=== PATIENT | female | born 2000 | race Caucasian/White ===

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

== ENCOUNTER 2023-12-06 18:47 | Emergency (ER) | payer OTHER ==
--- NOTE | 2023-12-06 19:52 | ED ---
Abdominal Pain HPI - General Chief Complaint: Abdominal Pain Stated Complaint: 6 weeks cramping Time Seen by Provider: 12/06/23 19:51 Source: patient Mode of arrival: ambulatory Limitations: no limitations - History of Present Illness Initial Comments: 23-year-old female presenting with chief complaint of pelvic cramping. States this has been ongoing for the last week or 2, located centrally in the pelvis. She currently estimates herself to be about 6 weeks , states that her LMP was at the beginning of October. G1, P0. Denies any vaginal bleeding. No nausea, vomiting, diarrhea, dysuria, hematuria, fever, chills, abnormal vaginal discharge. - Related Data Allergies Allergy/AdvReac Type Severity Reaction Status Date / Time No Known Allergies Allergy Verified 12/06/23 19:12 Review of Systems ROS Statement: Those systems with pertinent positive or pertinent negative responses have been documented in the HPI. ROS Other: All systems not noted in ROS Statement are negative. Past Medical History Past Medical History: No Reported History History of Any Multi-Drug Resistant Organisms: None Reported Past Surgical History: No Surgical Hx Reported Past Psychological History: No Psychological Hx Reported Past Alcohol Use History: None Reported Past Drug Use History: None Reported, Marijuana General Exam - General Exam Comments Initial Comments: Visual Physical Exam Vital signs reviewed General: Well-appearing, nontoxic, no acute distress. Head: Normocephalic, atraumatic Eyes: PERRLA, EOMI ENT: Airway patent Chest: Nonlabored breathing Skin: No visual rash, normal skin tone Neuro: Alert and oriented 3 Musculoskeletal: No gross abnormalities Limitations: no limitations General appearance: alert, in no apparent distress Head exam: Present: atraumatic, normocephalic Eye exam: Present: normal appearance Neck exam: Present: normal inspection Respiratory exam: Absent: respiratory distress Cardiovascular Exam: Present: regular rate GI/Abdominal exam: Absent: distended Neurological exam: Present: alert, oriented X3 Psychiatric exam: Present: normal affect, normal mood Skin exam: Present: warm, dry Course Vital Signs 12/06/23 12/06/23 19:10 23:49 Temperature 98.4 F 98.1 F Pulse Rate 75 83 Respiratory 18 16 Rate Blood Pressure 159/97 144/91 O2 Sat by Pulse 99 99 Oximetry Medical Decision Making - Medical Decision Making Was pt. sent in by a medical professional or institution (, PA, ELECTRIC SEALING MACHINE OPERATOR, urgent care, hospital, or [place] health care facility...) When possible be specific @ -No Did you speak to anyone other than the patient for history (EMS, parent, family, police, friend...)? What history was obtained from this source @ -No Did you review nursing and triage notes (agree or disagree)? Why? @ -I reviewed and agree with nursing and triage notes Were old charts reviewed (outside hosp., previous admission, EMS record, old EKG, old radiological studies, urgent care reports/EKG's, [place] health care facility records)? Report findings @ -No old charts were reviewed Differential Diagnosis (chest pain, altered mental status, abdominal pain women, abdominal pain men, vaginal bleeding, weakness, fever, dyspnea, syncope, headache, dizziness, GI bleed, back pain, seizure, CVA, palpatations, mental health, musculoskeletal)? @ -Differential includes uncomplicated , threatened miscarriage, missed miscarriage, ectopic , molar , UTI, kidney stone, colitis, this is not an all-inclusive list EKG interpreted by me (3pts min.). @ -As above X-rays interpreted by me (1pt min.). @ -None done CT interpreted by me (1pt min.). @ -None done U/S interpreted by me (1pt. min.). @ -Ultrasound shows small anechoic intrauterine cystic structure without evidence for yolk sac or pole at this time. This is thought to represent an early gestational sac with a positive beta hCG, however ectopic and abnormal intrauterine cannot be ruled out based on this exam alone. Follow-up with pelvic ultrasound in 7 to 10 days and serial beta hCG studies are recommended to ensure further development of the fetus What testing was considered but not performed or refused? (CT, X-rays, U/S, labs)? Why? @ -None What meds were considered but not given or refused? Why? @ -None Did you discuss the management of the patient with other professionals ( professionals i.e. NÉSTOR Jama, ELECTRIC SEALING MACHINE OPERATOR, lab, RT, psych nurse, social welfare clerk, aircraft servicer, teacher, workplace rehabilitation officer, showcase trimmer)? Give summary @ -No Was smoking cessation discussed for >3mins.? @ -No Was critical care preformed (if so, how long)? @ -No Were there social determinants of health that impacted care today? How? (Homelessness, low income, unemployed, alcoholism, drug addiction, transportation, low edu. Level, literacy, decrease access to med. care, senior living, rehab)? @ -No Was there de-escalation of care discussed even if they declined (Discuss DNR or withdrawal of care, Hospice)? DNR status @ -No What co-morbidities impacted this encounter? (DM, HTN, Smoking, COPD, CAD, Cancer, CVA, ARF, Chemo, Hep., AIDS, mental health diagnosis, sleep apnea, morbid obesity)? @ -None Was patient admitted / discharged? Hospital course, mention meds given and route, prescriptions, significant lab abnormalities, going to OR and other pertinent info. @ -23-year-old female presenting with chief complaint of pelvic cramping. Her LMP was at the beginning of October and she estimates herself to be about 6 weeks . No vaginal bleeding. Workup was initiated by triage. WBC 12 hemoglobin 14.1. hCG 2354.8. Urine shows no infectious process or bleeding. Ultrasound shows a small anechoic intrauterine cystic structure that is thought to represent an early gestational sac, no evidence for yolk sac or pole at this time. Patient is educated on today's findings. She is instructed to follo w-up with [facility], she is provided with an order for repeat beta hCG in 48 hours. Instructed to take Tylenol at home for pain, no NSAIDs. She is currently taking a vitamin. Discharged home. Follow-up with PCP. Report back to ER with any new or worsening symptoms. Discussed return parameters and answered all questions. Patient conveyed verbal understanding and agreed to the plan. I discussed this case in detail with my attending Dr. Camara Undiagnosed new problem with uncertain prognosis? @ -No Drug Therapy requiring intensive monitoring for toxicity (Heparin, Nitro, Insulin, Cardizem)? @ -No Were any procedures done? @ -No Diagnosis/symptom? @ -Threatened miscarriage Acute, or Chronic, or Acute on Chronic? @ -Acute Uncomplicated (without systemic symptoms) or Complicated (systemic symptoms)? @ -Uncomplicated Side effects of treatment? @ -No Exacerbation, Progression, or Severe Exacerbation? @ -No Poses a threat to life or bodily function? How? (Chest pain, USA, MD, pneumonia, PE, COPD, DKA, ARF, appy, cholecystitis, CVA, Diverticulitis, Homicidal, Suicidal, threat to staff... and all critical care pts) @ -No - Lab Data Result diagrams: 12/06/23 21:30 12/06/23 21:30 Lab Results 12/06/23 12/06/23 12/06/23 Range/Units 19:15 19:15 21:30 WBC 12.0 H (3.8-10.6) k/uL RBC 5.09 (3.80-5.40) m/uL Hgb 14.1 (11.4-16.0) gm/dL Hct 42.9 (34.0-46.0) % MCV 84.2 (80.0-100.0) fL MCH 27.7 (25.0-35.0) pg MCHC 32.9 (31.0-37.0) g/dL RDW 13.8 (11.5-15.5) % Plt Count 276 (150-450) k/uL MPV 8.6 Neutrophils % 63 % Lymphocytes % 28 % Monocytes % 7 % Eosinophils % 1 % Basophils % 1 % Neutrophils # 7.5 (1.3-7.7) k/uL Lymphocytes # 3.3 (1.0-4.8) k/uL Monocytes # 0.8 (0-1.0) k/uL Eosinophils # 0.1 (0-0.7) k/uL Basophils # 0.1 (0-0.2) k/uL Sodium (137-145) mmol/L Potassium (3.5-5.1) mmol/L Chloride (98-107) mmol/L Carbon Dioxide (22-30) mmol/L Anion Gap mmol/L BUN (7-17) mg/dL Creatinine (0.52-1.04) mg/dL Est GFR (CKD-EPI)AfAm (>60 ml/min/1.73 sqM) Est GFR (CKD-EPI)NonAf (>60 ml/min/1.73 sqM) Glucose (74-99) mg/dL Calcium (8.4-10.2) mg/dL Total Bilirubin (0.2-1.3) mg/dL AST (14-36) U/L ALT (4-34) U/L Alkaline Phosphatase (38-126) U/L Total Protein (6.3-8.2) g/dL Albumin (3.5-5.0) g/dL HCG, Quant mIU/mL Urine Color Yellow Urine Appearance Clear (Clear) Urine pH 5.5 (5.0-8.0) Ur Specific [place] 1.029 (1.001-1.035) Urine Protein Trace H (Negative) Urine Glucose (UA) Negative (Negative) Urine Ketones Negative (Negative) Urine Blood Negative (Negative) Urine Nitrite Negative (Negative) Urine Bilirubin Negative (Negative) Urine Urobilinogen <2.0 (<2.0) mg/dL Ur Leukocyte Esterase Negative (Negative) Urine HCG, Qual Detected (Not Detectd) 12/06/23 Range/Units 21:30 WBC (3.8-10.6) k/uL RBC (3.80-5.40) m/uL Hgb (11.4-16.0) gm/dL Hct (34.0-46.0) % MCV (80.0-100.0) fL MCH (25.0-35.0) pg MCHC (31.0-37.0) g/dL RDW (11.5-15.5) % Plt Count (150-450) k/uL MPV Neutrophils % % Lymphocytes % % Monocytes % % Eosinophils % % Basophils % % Neutrophils # (1.3-7.7) k/uL Lymphocytes # (1.0-4.8) k/uL Monocytes # (0-1.0) k/uL Eosinophils # (0-0.7) k/uL Basophils # (0-0.2) k/uL Sodium 136 L (137-145) mmol/L Potassium 3.7 (3.5-5.1) mmol/L Chloride 105 (98-107) mmol/L Carbon Dioxide 19 L (22-30) mmol/L Anion Gap 12 mmol/L BUN 12 (7-17) mg/dL Creatinine 0.54 (0.52-1.04) mg/dL Est GFR (CKD-EPI)AfAm >90 (>60 ml/min/1.73 sqM) Est GFR (CKD-EPI)NonAf >90 (>60 ml/min/1.73 sqM) Glucose 82 (74-99) mg/dL Calcium 10.0 (8.4-10.2) mg/dL Total Bilirubin 0.5 (0.2-1.3) mg/dL AST 31 (14-36) U/L ALT 23 (4-34) U/L Alkaline Phosphatase 90 (38-126) U/L Total Protein 8.4 H (6.3-8.2) g/dL Albumin 4.9 (3.5-5.0) g/dL HCG, Quant 2354.8 mIU/mL Urine Color Urine Appearance (Clear) Urine pH (5.0-8.0) Ur Specific [place] (1.001-1.035) Urine Protein (Negative) Urine Glucose (UA) (Negative) Urine Ketones (Negative) Urine Blood (Negative) Urine Nitrite (Negative) Urine Bilirubin (Negative) Urine Urobilinogen (<2.0) mg/dL Ur Leukocyte Esterase (Negative) Urine HCG, Qual (Not Detectd) Disposition Clinical Impression: Threatened Disposition: HOME SELF-CARE Condition: Good Instructions (If sedation given, give patient instructions): Threatened [place] (ED) Additional Instructions: Follow-up with [facility]. Report back to ER with any new or worsening symptoms. Obtain repeat beta hCG in 48 hours, you are provided with an order for this lab Is patient prescribed a controlled substance at d/c from ED?: No Referrals: None,Stated [Primary Care Provider] - 1-2 days Sharita Matson DO [Doctor of Osteopathic Medicine] - 1-2 days Time of Disposition: 23:32
[2023-12-06 20:09] LABS: Appearance,Urine Clear (Clear); Bilirubin,Urine Negative (Negative); Blood,Urine Negative (Negative); Color,Urine Yellow; Glucose,Urine (UA) Negative (Negative); Ketones,Urine Negative (Negative); Leukocyte Esterase,Urine Negative (Negative); Nitrite,Urine Negative (Negative); PH, Urine 5.5 (5.0-8.0); Protein,Urine Trace (Negative); Specific Gravity,Urine 1.029 (1.001-1.035); Urobilinogen,Urine <2.0 mg/dL (<2.0)
--- NOTE | 2023-12-06 22:07 | US ---
EXAMINATION TYPE: Transabdominal DATE OF EXAM: 12/06/2023 9:56 PM COMPARISON: NONE CLINICAL INDICATION: Female, 23 years old with history of cramping; cramping x 2 weeks. Pt unsure how far along she is EXAM PERFORMED: Transabdominal (TA) EXAM MEASUREMENTS: GESTATIONAL AGE / DATING Physician Established: Not yet established Dates by LMP: 10/23/23 (6 weeks/2 days) EDC: 07/29/24 Dates by First Scan: No previous this is first scan Dates by Current Scan for: Unable to date by today's study MATERNAL ANATOMY Uterus: 6.6 x 5.4 x 4.5cm Right Ovary: 3.3 x 2.3 x 2.3cm Left Ovary: 3.8 x 2.1 x 1.7cm Post CDS / Adnexa: wnl Presence of free fluid: No Presence of corpus luteal cyst: Yes in rt ovary measuring 2.1 x 2.0 x 2.0cm Presence of subchorionic bleed: no GESTATION / SURVEY CRL: Not seen MSD: 0.46cm ( OOR) Yolk Sac (normal less than 6mm): Not seen Date of LMP: Pt thinks around 10/23/23 Beta HcG (if available): Pending Anechoic structure seen in endometrium that could represent the gestational sac is measuring out of r laura, possibly too early. IMPRESSION: Small anechoic intrauterine cystic structure without evidence for yolk sac or pole at this time . This is thought to represent an early gestational sac with a positive beta hCG, however ectopic pre gnancy and abnormal intrauterine cannot be ruled out based on this exam alone. [facility] in 7-10 days and serial beta-hCG studies are recommended to en sure further deve lopment of the fetus.
[2023-12-06 22:21] LABS: Basophils # (A) 0.1 k/uL (0-0.2); Basophils % (A) 1 %; Eosinophils # (A) 0.1 k/uL (0-0.7); Eosinophils % (A) 1 %; HCT 42.9 % (34.0-46.0); HGB 14.1 gm/dL (11.4-16.0); Lymphocytes # (A) 3.3 k/uL (1.0-4.8); Lymphocytes % (A) 28 %; MCH 27.7 pg (25.0-35.0); MCHC 32.9 g/dL (31.0-37.0); MCV 84.2 fL (80.0-100.0); Mean Platelet Volume 8.6; Monocytes # (A) 0.8 k/uL (0-1.0); Monocytes % (A) 7 %; Neutrophils # (A) 7.5 k/uL (1.3-7.7); Neutrophils % (A) 63 %; Platelet Count 276 k/uL (150-450); RBC 5.09 m/uL (3.80-5.40); RDW 13.8 % (11.5-15.5)
[2023-12-06 22:35] LABS: ALT 23 U/L (4-34); AST 31 U/L (14-36); African American GFR (CKD) >90 (>60 ml/min/1.73 sqM); Albumin 4.9 g/dL (3.5-5.0); Alkaline Phosphatase 90 U/L (38-126); Anion Gap 12 mmol/L; Blood Urea Nitrogen 12 mg/dL (7-17); Carbon Dioxide 19 mmol/L (22-30); Chloride 105 mmol/L (98-107); Glucose 82 mg/dL (74-99); Non-African American GFR(CKD) >90 (>60 ml/min/1.73 sqM); Potassium 3.7 mmol/L (3.5-5.1); Sodium 136 mmol/L (137-145); Total Bilirubin 0.5 mg/dL (0.2-1.3); Total Protein 8.4 g/dL (6.3-8.2)
[2023-12-06 22:50] LABS: HCG,Quantitative Serum 2354.8 mIU/mL
[2023-12-07 00:24] VITALS: BP 144/91; PULSE 83; RESP 16; TEMP 98.1
== END 2023-12-06 23:49 | disposition home or self-care (01) ==
LOC: EC 18:47
DX: O20.0 Threatened abortion (principal); O99.331 Smoking (tobacco) complicating pregnancy, first trimester; F12.90 Cannabis use, unspecified, uncomplicated; Z3A.01 Less than 8 weeks gestation of pregnancy
CPT/HCPCS: 36415; 76801; 80053; 81003; 81025; 84702; 85025; 99284

== ENCOUNTER → 2023-12-08 | Outpatient (CLI) | payer OTHER | END | disposition home or self-care (01) | LOC: LABWHC1 09:55 | PROVIDERS: ATTEND Physician Assistant | DX: O20.0 Threatened abortion (principal); Z3A.00 Weeks of gestation of pregnancy not specified | CPT/HCPCS: 36415; 84702 ==

== ENCOUNTER 2024-03-24 22:07 | Outpatient (CLI) | payer OTHER ==
[2024-03-24 22:54] LABS: Appearance,Urine Clear (Clear); Bilirubin,Urine Negative (Negative); Blood,Urine Negative (Negative); Color,Urine Colorless; Glucose,Urine (UA) Negative (Negative); Ketones,Urine Negative (Negative); Leukocyte Esterase,Urine Negative (Negative); Nitrite,Urine Negative (Negative); Protein,Urine Negative (Negative); Specific Gravity,Urine 1.007 (1.001-1.035); Urobilinogen,Urine <2.0 mg/dL (<2.0)
[2024-03-24] MEDS: ACETAMINOPHEN TAB 500 MG TAB PO STA (23:02)
[2024-03-24] MEDS ORDERED: FAMOTIDINE 20 MG/2 ML VIAL IV SCH (23:15)
[2024-03-24] MEDS: FAMOTIDINE 20 MG TAB PO STA (23:33)
[2024-03-24] MEDS: ONDANSETRON 4 MG/2 ML VIAL IVP STA (23:33)
[2024-03-24] MEDS: LACTATED RINGERS 1,000 ML IV ONE (23:33)
[2024-03-25] MEDS: CYCLOBENZAPRINE 5 MG TAB PO STA (00:30)
[2024-03-25 01:48] VITALS: BP 121/57; PULSE 76; RESP 18; TEMP 96
--- NOTE | 2024-04-14 15:46 | P.MSEPDOC ---
Presenting Problems - Arrival Data Date of Arrival on Unit: 03/25/24 Time of Arrival on Unit: 22:03 Mode of Transport: Wheelchair - Complaint OB-Reason for Admission/Chief Complaint: Acute Nausea/Vomiting, Other Comment: Right lower abd pain, back pain, nausea and vomiting Medical History - Information : 1 Para: 0 Term: 0 : 0 Abortions: Spontaneous or Elective: 0 Number of Living Children: 0 - Gestational Age Gestational Age by VARGHESE (wks/days): 20 Weeks and 1 Days Review of Systems - Review of Systems Constitutional: No problems Breast: No problems ENT: No problems Cardiovascular: No problems Respiratory: No problems Gastrointestinal: No problems Genitourinary: No problems Musculoskeletal: No problems Neurological: No problems Skin: No problems Vital Signs - Temperature Temperature: 96 F Temperature Source: Temporal Artery Scan - Pulse Right Pulse Rate: 76 Pulse Assessment Method: Pulse Oximetry - Respirations Respiratory Rate: 18 Oxygen Delivery Method: Room Air O2 Sat by Pulse Oximetry: 98 - Blood Pressure Right Arm Blood Pressure: 121/57 Blood Pressure Mean: 78 Blood Pressure Source: Automatic Cuff Medical Screen Scoring - Assessment - Baby A Baseline FHR: 150 Physician Notification - Physician Notified Physician Notified Date: 03/24/24 Physician Notified Time: 22:55 Physician: Audra Fontana Order Received: Yes (1L LR bolus, IV zofran 4mg, PO pepcid 20mg) - Notification Comment Comment: additional dose of Flexeril 5mg Maternal Triage Index - Maternal Triage Index Presenting for scheduled procedure w/no complaint: No - Stat/Priority 1 Stat Priority 1: No - Urgent/Priority 2 Urgent Priority 2: No - Prompt/Priority 3 Prompt Priority 3: No - Non-Urgent/Priority 4 Non-Urgent Priority 4: Yes Criteria Met for Priority 4: N/V, right lower abd pain and back pain Disposition - Disposition OB Disposition: Discharge to home Discharge Date: 03/25/24 Discharge Time: 01:29 I agree with the RN Medical Screening Exam: Yes Physician's MSE Comment: I have neither seen nor examined the patient Case reviewed; plan agreed upon as documented in EMR&OBIX.: Yes Diagnosis: MATERNAL CARE FOR PROBLEM, UNSP, SECOND * DO NOT USE *
== END 2024-03-25 01:36 | disposition home or self-care (01) ==
LOC: FBPOP 22:07
PROVIDERS: ATTEND Obstetrics & Gynecology
DX: O21.9 Vomiting of pregnancy, unspecified (principal); O26.892 Other specified pregnancy related conditions, second trimester; M54.9 Dorsalgia, unspecified; R10.31 Right lower quadrant pain; Z3A.20 20 weeks gestation of pregnancy
CPT/HCPCS: 59025; 96361; 96374; 96375; 81003; G0463; J2405; 36415; 96365; 99214

== ENCOUNTER → 2024-05-21 | Outpatient (CLI) | payer OTHER ==
[2024-05-21 15:57] LABS: HCT 33.7 % (37.2-46.3); HGB 10.6 g/dL (12.0-15.0); MCH 27.9 pg (27.0-32.0); MCHC 31.5 g/dL (32.0-37.0); MCV 88.7 FL (80.0-97.0); Mean Platelet Volume 11.5 FL (9.5-12.2); NRBC Per 100 WBC 0 X 10*3/uL (0.00-0.01); Platelet Count 290 X 10*3/uL (140-440); RDW 13.5 % (11.5-14.5); WBC 12.92 X 10*3/uL (4.50-10.00)
== END | disposition home or self-care (01) ==
LOC: LABWHC1 09:50
PROVIDERS: ATTEND Obstetrics & Gynecology
DX: Z36.9 Encounter for antenatal screening, unspecified (principal)
CPT/HCPCS: 36415; 82950; 85027; 86850

== ENCOUNTER 2024-06-19 18:04 | Outpatient (CLI) | payer OTHER ==
[2024-06-19 20:57] VITALS: BP 150/93; PULSE 66; RESP 16; TEMP 98.4
--- NOTE | 2024-07-05 09:17 | P.MSEPDOC ---
Presenting Problems - Arrival Data Date of Arrival on Unit: 06/19/24 Time of Arrival on Unit: 18:04 Mode of Transport: Ambulatory - Complaint OB-Reason for Admission/Chief Complaint: Decreased Movement Comment: pt to traige for decreased movement, states has felt some movment but not as much as normal, and movements have been milder Medical History - Information : 1 Para: 0 Term: 0 : 0 Abortions: Spontaneous or Elective: 0 Number of Living Children: 0 - Gestational Age Gestational Age by VARGHESE (wks/days): 32 Weeks and 3 Days - History Comment: IUGR Review of Systems - Review of Systems Constitutional: No problems Breast: No problems ENT: No problems Cardiovascular: No problems Respiratory: No problems Gastrointestinal: No problems Genitourinary: No problems Musculoskeletal: No problems Neurological: No problems Skin: No problems Vital Signs - Temperature Temperature: 98.4 F Temperature Source: Temporal Artery Scan - Pulse Pulse Oximetery Pulse Rate: 66 Pulse Assessment Method: Pulse Oximetry - Respirations Respiratory Rate: 16 Oxygen Delivery Method: Room Air - Blood Pressure Right Arm Blood Pressure: 150/93 Blood Pressure Mean: 112 Blood Pressure Source: Automatic Cuff Medical Screen Scoring - Uterine Contractions Intensity: Absent Resting: Soft to palpation - Assessment - Baby A Baseline FHR: 145 Heart Rate - NICHD Category: Category II (Indeterminate) NST: Reactive Physician Notification - Physician Notified Physician Notified Date: 06/19/24 Physician Notified Time: 19:19 Physician: Jimmy Bolton New Order Received: Yes - Notification Comment Comment: Called Dr. Bolton, reported pt to traige c/o decreased movement, has felt movement in triage, reactive nst, with 2 variables, bp 150/93, 137/91,and all others less. pt does not have any s/sx preeclampsia. Per Dr. Bolton keep on monitor until 1999 and if no more decels, discharge home Maternal Triage Index - Maternal Triage Index Presenting for scheduled procedure w/no complaint: No - Stat/Priority 1 Stat Priority 1: No - Urgent/Priority 2 Urgent Priority 2: Yes Provider Notified: Jimmy Bolton Provider Notified Time: 19:19 Criteria Met for Priority 2: pt to traige for decreased movement, states has felt some movment but not as much as normal, and movements have been milder Disposition - Disposition OB Disposition: Discharge to home Discharge Date: 06/19/24 Discharge Time: 20:05 I agree with the RN Medical Screening Exam: Yes Physician's MSE Comment: I have neither seen nor examined the patient. Case reviewed; plan agreed upon as documented in EMR&OBIX.: Yes Diagnosis: RELATED CONDITIONS, UNSPECIFIED, THIRD TRIMESTER
== END 2024-06-19 20:05 | disposition home or self-care (01) ==
LOC: FBPOP 18:04
PROVIDERS: ATTEND Obstetrics & Gynecology
CPT/HCPCS: 59025; 99213

== ENCOUNTER 2024-07-11 19:54 | Inpatient (IN) | payer OTHER ==
[2024-07-11 20:38] LABS: Basophils % (A) 0 %; Eosinophils # (A) 0.1 k/uL (0-0.7); Eosinophils % (A) 1 %; HCT 34.1 % (34.0-46.0); HGB 10.9 gm/dL (11.4-16.0); Hypochromasia Slight; Lymphocytes # (A) 3.4 k/uL (1.0-4.8); Lymphocytes % (A) 28 %; MCH 27.8 pg (25.0-35.0); MCV 87.1 fL (80.0-100.0); Mean Platelet Volume 9.7; Monocytes # (A) 0.5 k/uL (0-1.0); Monocytes % (A) 5 %; Neutrophils # (A) 7.7 k/uL (1.3-7.7); Neutrophils % (A) 64 %; Platelet Count 272 k/uL (150-450); RBC 3.91 m/uL (3.80-5.40); RDW 15.1 % (11.5-15.5)
[2024-07-11] MEDS: LABETALOL 5 MG/ML VIAL MDV IVP STA (20:40)
[2024-07-11 20:43] LABS: Appearance,Urine Clear (Clear); Bacteria,Urine Rare /hpf; Bilirubin,Urine Negative (Negative); Blood,Urine Negative (Negative); Color,Urine Colorless; Glucose,Urine (UA) Negative (Negative); Ketones,Urine Negative (Negative); Leukocyte Esterase,Urine Negative (Negative); Nitrite,Urine Negative (Negative); PH, Urine 6.5 (5.0-8.0); Protein,Urine 2+ (Negative); RBC,Urine <1 /hpf (0-5); Specific Gravity,Urine 1.008 (1.001-1.035); Squamous Epithelial Cell,Urine 1 /hpf (0-4); Urobilinogen,Urine <2.0 mg/dL (<2.0); WBC,Urine <1 /hpf (0-5)
[2024-07-11] MEDS: LACTATED RINGERS 1,000 ML IV SCH (20:43)
[2024-07-11 20:54] LABS: Creatinine,Urine Random 37.2 mg/dL
[2024-07-11 20:55] LABS: ALT 25 U/L (4-34); AST 47 U/L (14-36); African American GFR (CKD) >90 (>60 ml/min/1.73 sqM); Blood Urea Nitrogen 11 mg/dL (7-17); LDH 206 U/L (120-246); Non-African American GFR(CKD) >90 (>60 ml/min/1.73 sqM); Uric Acid 6.1 mg/dL (3.7-7.4)
[2024-07-11 20:56] LABS: INR 0.8 (<1.2); Partial Thromboplastin Time 22.3 sec (22.0-30.0); Prothrombin Time 9.4 sec (10.0-12.5)
[2024-07-11 21:03] LABS: Protein/Creatinine Ratio,Urine 9.435
--- NOTE | 2024-07-11 21:23 | P.HPOB ---
History of Present Illness H&P Date: 07/11/24 Chief Complaint: headache, elevated blood pressures Ms. Soto is a 24 year old at 35 weeks and 4 days by 6 week US who presents with headache and elevated blood pressures. Her has been complicated by IUGR in the 4%ile. The fetus has been undergoing s urveillance that has been reassuring. On presentation to triage, the patient is noted to have persistently severe-range blood pressures 170s/100s. IV Labetalol 20mg is pushed with improvement in blood pressures to normotensive range. Work- up shows a P:C ratio of 9.4. work-up: blood type A negative (s/p rhogam at 28 weeks), antibody screen negative, rubella non-immune, VDRL non-reactive, HBsAg negative, HIV negative, HCV non-reactive, gonorrhea negative, chlamydia negative, 1 hour GTT wnl. Past Medical History Past Medical History: No Reported History History of Any Multi-Drug Resistant Organisms: None Reported Past Surgical History: No Surgical Hx Reported Smoking Status: Never smoker Medications and Allergies Home Medications Medication Instructions Recorded Confirmed Type Vit No.179/Iron/Folic 1 tab PO DAILY 03/24/24 07/11/24 History [ Tablet] Omeprazole [PriLOSEC] 10 mg PO DAILY 07/11/24 07/11/24 History Allergies Allergy/AdvReac Type Severity Reaction Status Date / Time No Known Allergies Allergy Verified 07/11/24 20:17 Exam Vital Signs Temp Pulse Resp BP 07/11/24 20:31 80 153/102 07/11/24 20:12 70 167/96 07/11/24 20:06 71 177/108 07/11/24 20:01 98 F 66 16 178/104 Intake and Output 07/11/24 07/11/24 07/11/24 06:59 14:59 22:59 Other: Weight 79.379 kg Focused physical exam is performed. This is a healthy-appearing in no apparent distress. Breathing is non-labored. Abdomen is gravid and non-tender. Cervical exam is closed, long, and high. A sterile speculum is used to place a cooks catheter with 60cc in both balloons. Extremities non-tender and non- edematous. heart tones are Category I and tocometer is not graphing any contractions. Results Result Diagrams: 07/11/24 20:15 07/11/24 20:15 Abnormal Lab Results - Last 24 Hours (Table) 07/11/24 07/11/24 07/11/24 Range/Units 20:15 20:15 20:15 WBC 12.0 H (3.8-10.6) k/uL Hgb 10.9 L (11.4-16.0) gm/dL PT 9.4 L (10.0-12.5) sec Fibrinogen 541 H (200-500) mg/dL AST (14-36) U/L Urine Protein 2+ H (Negative) Urine Bacteria Rare H (None) /hpf 07/11/24 Range/Units 20:15 WBC (3.8-10.6) k/uL Hgb (11.4-16.0) gm/dL PT (10.0-12.5) sec Fibrinogen (200-500) mg/dL AST 47 H (14-36) U/L Urine Protein (Negative) Urine Bacteria (None) /hpf Assessment and Plan Assessment: 24 year old at 35 weeks and 4 days presenting with newly diagnosed pre- eclampsia with severe features Plan: Admit, clear liquid diet, IV Magnesium Sulfate for seizure prophylaxis, low-dose pitocin with cooks catheter x12 hours, IV nubain prn pain. Continuous EFM and tocometer. Time with Patient: Less than 30
[2024-07-11] MEDS ORDERED: LABETALOL 5 MG/ML VIAL MDV IVP PRN (21:45)
[2024-07-11] MEDS ORDERED: CALCIUM GLUCONATE 1 GM/10 ML VIAL IV PRN (22:07)
[2024-07-11] MEDS ORDERED: TRANEXAMIC 1,000 MG/100ML-NACL 1,000 MG in EMPTY BAG 1 BAG IV PRN (22:13)
[2024-07-11] MEDS ORDERED: OXYTOCIN 10 UNIT/ML 1 ML VIAL IM PRN (22:13)
[2024-07-11] MEDS ORDERED: CARBOPROST TROMETHAMINE 250 MCG/ML 1 ML AMP IM PRN (22:13)
[2024-07-11] MEDS ORDERED: miSOPROStoL 200 MCG TAB PO PRN (22:13)
[2024-07-11] MEDS ORDERED: METHYLERGONOVINE 0.2 MG/ML 1 ML AMP IM PRN (22:13)
[2024-07-11] MEDS ORDERED: miSOPROStoL 200 MCG TAB RECTAL PRN (22:13)
[2024-07-11] MEDS: MAGNESIUM SULFATE-WATER PMX 4 GM in WATER FOR INJECTION 1 100ML.BAG IVPB ONE (22:15)
[2024-07-11] MEDS: OXYTOCIN 30 UNITS/500 ML NS 30 UNIT in SALINE 1 500ML.BAG IV SCH (22:45)
[2024-07-11] MEDS: MAGNESIUM SULFATE-WATER PMX 20 GM in WATER FOR INJECTION 1 500ML.BAG IV SCH (22:45)
[2024-07-12] MEDS: PENICILLIN G POTASSIUM 5,000,000 UNIT in DEXTROSE 5% IN WATER 100 ML IVPB STA (00:06)
[2024-07-12] MEDS: LACTATED RINGERS 1,000 ML IV SCH ×2 (00:50→21:33)
[2024-07-12] MEDS: NALBUPHINE 10 MG/ML (10 ML MDV) IV PRN (01:19)
[2024-07-12] MEDS: PENICILLIN G POTASSIUM 2,500,000 UNIT in DEXTROSE 5% IN WATER 100 ML IVPB SCH (04:38)
[2024-07-12] MEDS: ACETAMINOPHEN TAB 325 MG TAB PO STA (06:08)
[2024-07-12] MEDS ORDERED: ROPIVACAINE 5 MG/ML 30 ML VIAL ONE (08:47)
[2024-07-12] MEDS ORDERED: SODIUM CHLORIDE 0.9% 250 ML BAG ONE (08:47)
[2024-07-12] MEDS ORDERED: fentaNYL (PF) 50 MCG/ML 5 ML AMP ONE (08:47)
[2024-07-12] MEDS: NIFEdipine XL 30 MG TAB.ER.24 PO SCH (09:01)
[2024-07-12] MEDS: diphenhydrAMINE 50 MG/ML 1 ML VIAL IVP STA (09:30)
[2024-07-12] MEDS: METOCLOPRAMIDE 5 MG/ML 2 ML VIAL IVP STA (13:45)
[2024-07-12] MEDS: LABETALOL 5 MG/ML VIAL MDV IVP STA (17:50)
[2024-07-12] MEDS ORDERED: TRANEXAMIC 1,000 MG/100ML-NACL 1,000 MG in EMPTY BAG 1 BAG IV PRN (19:18)
[2024-07-12] MEDS ORDERED: METHYLERGONOVINE 0.2 MG/ML 1 ML AMP IM PRN (19:18)
[2024-07-12] MEDS ORDERED: miSOPROStoL 200 MCG TAB PO PRN (19:18)
[2024-07-12] MEDS ORDERED: CARBOPROST TROMETHAMINE 250 MCG/ML 1 ML AMP IM PRN (19:18)
[2024-07-12] MEDS ORDERED: OXYTOCIN 10 UNIT/ML 1 ML VIAL IM PRN (19:18)
[2024-07-12] MEDS: CITRIC ACID-SODIUM CITRATE 15 ML CUP PO ONE (19:24)
[2024-07-12] MEDS ORDERED: OXYTOCIN 30 UNITS/500 ML NS BAG IV ONE (19:26)
[2024-07-12] MEDS ORDERED: PROPOFOL 10 MG/ML 20 ML VIAL IV ONE (19:26)
[2024-07-12] MEDS ORDERED: MORPHINE SULFATE (PF) 0.3 MG/0.3 ML SYR ONE (19:26)
[2024-07-12] MEDS ORDERED: fentaNYL (PF) 50 MCG/ML 2 ML AMP ONE (19:26)
[2024-07-12] MEDS ORDERED: DEXAMETHASONE SOD PHOSPHATE 4 MG/ML 1 ML VIAL ONE (19:26)
[2024-07-12] MEDS ORDERED: KETOROLAC 15 MG/ML 1 ML VIAL ONE (19:26)
[2024-07-12] MEDS ORDERED: SUCCINYLCHOLINE CHLORIDE 200 MG/10 ML VIAL IV ONE (19:26)
[2024-07-12] MEDS ORDERED: ONDANSETRON 4 MG/2 ML VIAL ONE (19:26)
[2024-07-12] MEDS ORDERED: KETOROLAC 15 MG/ML 1 ML VIAL IVP PRN (20:22)
[2024-07-12] MEDS ORDERED: diphenhydrAMINE 50 MG CAP PO PRN (20:22)
[2024-07-12] MEDS ORDERED: ZOLPIDEM 5 MG TAB PO PRN (20:22)
[2024-07-12] MEDS ORDERED: METOCLOPRAMIDE 5 MG/ML 2 ML VIAL IVP PRN (20:22)
[2024-07-12] MEDS ORDERED: LANOLIN CREAM 1 GM TUBE TOPICAL PRN (20:22)
[2024-07-12] MEDS ORDERED: diphenhydrAMINE 50 MG/ML 1 ML VIAL IVP PRN ×2 (20:22)
[2024-07-12] MEDS ORDERED: NALOXONE 0.4 MG/ML 1 ML VIAL IV PRN (20:22)
[2024-07-12] MEDS ORDERED: diphenhydrAMINE 25 MG CAP PO PRN (20:22)
[2024-07-12] MEDS ORDERED: OXYTOCIN 30 UNITS/500 ML NS 30 UNIT in SALINE 1 500ML.BAG IV SCH (20:30)
--- NOTE | 2024-07-12 20:32 | P.OP ---
Date of Procedure: 07/12/24 Preoperative Diagnosis: #1. 35-5/7 weeks intrauterine #2. Severe preeclampsia #3. Maternal intolerance of labor Postoperative Diagnosis: Same Procedure(s) Performed: #1. Elective primary low-transverse section Anesthesia: EDWARD Surgeon: Jimmy Bolton Oracle Database Developer #1: Ann-Marie Acevedo Estimated Blood Loss (ml): 460 IV fluids (ml): 1,200 Urine output (ml): 400 Pathology: other (Placenta) Condition: stable Disposition: floor Operative Findings: Preoperatively, the patient had been undergoing induction with Pitocin after artificial rupture of membranes. She additionally had magnesium sulfate started within initial IV bolus followed by 2 g/h. She made progress to approximately 7 cm of dilation and had an epidural catheter placed for analgesia earlier in the labor process. She continued to have significant discomfort despite several attempts to bolus the epidural. She remained at 7 cm for approximately 2 to 3 hours at which time she requested to proceed with primary low-transverse section secondary to intolerance of the labor process. She was taken to the operating room where she was delivered of a viable 4 pound 15 ounce baby boy with Apgars of 8 at 1 minute and 9 at 5 minutes in the left occiput anterior position. The placenta was delivered manually, intact, and grossly normal with a grossly normal three-vessel cord. The uterus, tubes, and ovaries were entirely normal to inspection. Description of Procedure: The patient was prepped and draped in standard fashion after spinal anesthesia was administered by the anesthesiologist. Adequate anesthesia was never achieved despite the spinal having been noted to be in the right location with cerebrospinal fluid noted at the time of placement. As a result, the patient was then intubated for general endotracheal anesthesia at which time a Pfannenstiel incision was made and extended into the abdominal cavity without difficulty. The bladder peritoneum was significantly distal to the intended site of incision and was left intact. A 2 cm incision was made in the lower segment of the uterus in the transverse plane at which time clear fluid was noted. The incision was extended in both directions using the bandage scissors. The head was elevated up and through the incision where the nose and mouth were thoroughly suctioned. The remainder of the was delivered onto the field where the cord was doubly clamped, cut, and the passed for resuscitative measures with weight and Apgars as noted above. cord blood was collected per protocol. The placenta was delivered manually and intact as noted above. The uterus was exteriorized and the anterior cavity uterus swept of any remaining placental or membranous fragments. The margins of the uterine incision were grasped with Conti clamps and the incision closed in 2 layers. The first layer was a running locking stitch of 0 chromic catgut followed by running imbricating stitch of 0 chromic catgut, each from angle to angle. Hemostasis appeared to be excellent. The posterior cul-de-sac was suctioned with a guard and the uterine and ovarian findings were normal as noted above. The uterus was replaced within the abdominal cavity and the gutters swept of any remaining blood, fluid, or clot. Reinspection of the incision demonstrated excellent hemostasis. The parietal peritoneum was loosely reapproximated and the layer of muscles examined and found to be hemostatic. The fascia was closed with a single running stitch of 0 Vicryl from margin to margin. The subcutaneous tissues were irrigated, made hemostatic with the Bovie, and reapproximated with a running stitch of 3-0 plain catgut. The skin was reapproximated with a running subcuticular stitch of 4-0 Vicryl from margin to margin followed by half-inch Steri-Strips placed with Mastisol. Quantitative blood loss for the case was 460 mL. There were no complications. All sponge, instrument, and needle counts were correct. The patient tolerated the procedure well and proceeded to the recovery room in stable condition. The mother is resting comfortably in recovery and the infant is in special care nursery secondary to gestational age and potential issues of prematurity.
[2024-07-12] MEDS: ACETAMINOPHEN TAB 500 MG TAB PO SCH (23:06)
[2024-07-13] MEDS: IBUPROFEN 600 MG TAB PO SCH (02:06)
[2024-07-13 04:17] LABS: Basophils % (A) 0 %; Eosinophils % (A) 0 %; HCT 32.9 % (34.0-46.0); HGB 10.4 gm/dL (11.4-16.0); Hypochromasia Slight; Lymphocytes # (A) 1.4 k/uL (1.0-4.8); Lymphocytes % (A) 6 %; MCH 27.8 pg (25.0-35.0); MCHC 31.5 g/dL (31.0-37.0); MCV 88.2 fL (80.0-100.0); Mean Platelet Volume 9.6; Monocytes # (A) 0.7 k/uL (0-1.0); Monocytes % (A) 3 %; Neutrophils # (A) 22.1 k/uL (1.3-7.7); Neutrophils % (A) 90 %; Platelet Count 246 k/uL (150-450); RBC 3.73 m/uL (3.80-5.40); RDW 15.3 % (11.5-15.5); WBC 24.4 k/uL (3.8-10.6)
[2024-07-13] MEDS: SENNOSIDES-DOCUSATE SODIUM 1 EACH TAB PO SCH (08:36)
[2024-07-13 10:18] VITALS: RESP 16
--- NOTE | 2024-07-13 11:04 | P.PNOBGPC ---
Subjective - Subjective Interval history: The patient reports feeling significantly better today though she is still so mewhat groggy from the ongoing magnesium. Pain is well-controlled. Patient reports: Reports appetite normal, Reports voiding normally, Reports pain well controlled, Reports other (The patient remains with bedrest with bathroom privileges secondary to ongoing magnesium sulfate treatment and prophylaxis for seizures secondary to preeclampsia.) [place]: doing well Objective - Vital Signs Latest vital signs: Vital Signs Temp Pulse Resp BP Pulse Ox 07/13/24 10:00 97.5 F L 80 16 159/97 97 07/13/24 09:00 74 17 153/86 07/13/24 08:00 97.8 F 77 16 113/73 99 07/13/24 07:00 60 16 120/75 07/13/24 06:00 67 16 128/76 07/13/24 05:00 77 16 134/84 07/13/24 04:00 69 16 120/79 07/13/24 03:00 70 18 120/67 07/13/24 02:00 82 16 117/70 07/13/24 01:00 79 16 127/78 07/13/24 00:00 88 16 115/75 07/12/24 23:00 88 16 137/85 07/12/24 22:21 82 18 145/89 98 07/12/24 22:06 86 18 137/84 100 07/12/24 21:51 84 16 135/82 100 07/12/24 21:36 80 16 141/88 100 07/12/24 21:21 85 18 123/93 99 07/12/24 21:06 84 16 135/86 100 07/12/24 20:51 82 16 144/88 98 07/12/24 20:36 94 16 154/88 100 07/12/24 20:21 97.1 F L 100 16 136/85 100 Intake and Output 07/12/24 07/13/24 07/13/24 22:59 06:59 14:59 Intake Total 584.659 7479 Output Total 3007 2000 1500 Balance -2466.517 -900 -1500 Intake: Intake, IV Titration 540.483 500 Amount Magnesium Sulfate-Water 480.833 500 Pmx 20 gm In Water For Injection 1 500ml.bag @ 2 GM/HR 50 mls/hr IV .Q10H [facility] Rx#:[id number] Oxytocin 30 Units/500 ml 59.65 Ns 30 unit In Saline 1 500ml.bag @ Per Protocol IV .Q0M [facility] Rx#:[id number] Oral 600 Output: Urine 2500 2000 1500 Uretheral (Christopher) 300 2000 400 Output, Quantitative 507 Blood Loss Other: Voiding Method Indwelling Catheter - Exam Extremities: Present: normal Abdomen: Present: normal appearance, soft. Absent: distention, tenderness Incision: Present: normal, dry, intact Uterus: Present: normal, firm (The uterine fundus is tonic and appropriately tender below the umbilicus.) - Labs Labs: Abnormal Lab Results - Last 24 Hours (Table) 07/13/24 Range/Units 03:46 WBC 24.4 H (3.8-10.6) k/uL RBC 3.73 L (3.80-5.40) m/uL Hgb 10.4 L (11.4-16.0) gm/dL Hct 32.9 L (34.0-46.0) % Neutrophils # 22.1 H (1.3-7.7) k/uL Assessment and Plan (1) S/P primary low transverse Current Visit: Yes Status: Acute Code(s): Z98.891 - HISTORY OF UTERINE SCAR FROM PREVIOUS SURGERY SNOMED Code(s): 420743750 (2) Severe preeclampsia Current Visit: Yes Status: Acute Code(s): O14.10 - SEVERE PRE-ECLAMPSIA, UNSPECIFIED TRIMESTER SNOMED Code(s): 39333044 Plan: Magnesium sulfate prophylaxis will continue until 24 hours postdelivery, approximately 8:00 tonight. We will carefully monitor her blood pressures going forward and treat as necessary. She currently has been started on Procardia XL 30 mg daily. The infant remains in the special care nursery secondary to prematurity though he is requiring no extra oxygen, IV fluids, or antibiotics. I would anticipate the infant staying for at least 5 to 7 days. As a result, the patient may remain in the hospital for the full 4 days post section. She is otherwise tolerating regular diet and will be allowed to ambulate once she comes off of magnesium sulfate.
--- NOTE | 2024-07-14 11:13 | P.PNOBGPC ---
Subjective - Subjective Interval history: The patient reports feeling significantly better off of magnesium. She is ot herwise tolerating a regular diet and performing all activities of daily living. She does report that she is having a moderate amount of anxiety and would like to start something for that symptom. Patient reports: Reports appetite normal, Reports voiding normally, Reports pain well controlled, Reports ambulating normally : doing well, in NICU Objective - Vital Signs Latest vital signs: Vital Signs Temp Pulse Resp BP Pulse Ox 07/14/24 08:00 98.7 F 56 L 16 144/89 07/14/24 04:00 98.4 F 89 16 119/73 98 07/14/24 00:00 98 F 89 16 138/88 98 07/13/24 20:00 70 16 134/81 07/13/24 19:00 88 16 134/82 07/13/24 18:00 96 16 140/85 07/13/24 17:00 74 16 137/81 07/13/24 16:00 78 16 119/76 07/13/24 15:00 78 16 125/76 07/13/24 14:00 79 16 137/78 07/13/24 13:00 93 16 139/93 07/13/24 12:41 97.2 F L 95 16 137/90 Intake and Output 07/13/24 07/14/24 07/14/24 22:59 06:59 14:59 Intake Total 265.833 Output Total 3700 800 Balance -3434.167 -800 Intake: Intake, IV Titration 265.833 Amount Magnesium Sulfate-Water 265.833 Pmx 20 gm In Water For Injection 1 500ml.bag @ 2 GM/HR 50 mls/hr IV .Q10H [facility] Rx#:[id number] Output: Urine 3700 800 Other: Voiding Method Indwelling Catheter # Voids 2 1 - Exam Extremities: Present: normal Abdomen: Present: normal appearance, soft. Absent: distention, tenderness Incision: Present: normal, dry, intact Uterus: Present: normal, firm (The uterine fundus is tonic and appropriately tender well below the umbilicus.) Assessment and Plan (1) S/P primary low transverse Current Visit: Yes Status: Acute Code(s): Z98.891 - HISTORY OF UTERINE SCAR FROM PREVIOUS SURGERY SNOMED Code(s): 074081192 (2) Severe preeclampsia Current Visit: Yes Status: Acute Code(s): O14.10 - SEVERE PRE-ECLAMPSIA, UNSPECIFIED TRIMESTER SNOMED Code(s): 13364627 Plan: The patient appears to be well-controlled now off of magnesium sulfate and with oral antihypertensives. The remains in special care nursery and will likely remain so for the next week or so. As a result, the patient will likely maximize her available stay in the hospital and to be discharged on /postoperative day #4. I have encouraged her to continue to ambulate in the hallways routinely. She has requested something for anxiety and I will start her on Zoloft 50 mg daily.
--- NOTE | 2024-07-14 11:48 | P.DS ---
Providers Date of admission: 07/11/24 20:21 Expected date of discharge: 07/14/24 Attending physician: Audra Fontana MD Primary care physician: Stated None - Discharge Diagnosis(es) (1) S/P primary low transverse Current Visit: Yes Status: Acute (2) Severe preeclampsia Current Visit: Yes Status: Acute Hospital Course: The patient is a 24-year-old 1 para 0 admitted at 35-4/7 as established by 6-week ultrasound. She is admitted with significant headache and blurry vision as well as elevated blood pressures. Her was complicated by diagnosis of intrauterine growth restriction with growth in the 4th percentile. testing twice weekly has been reassuring. On labor delivery, she had severe range blood pressures in the range of 170s over 100s. Intravenous labetalol was utilized to manage blood pressures she was noted to have a significantly high protein to creatinine ratio on a urine. The decision was made to proceed with delivery. She had Pitocin augmentation started and underwent artificial rupture of membranes for clear fluid. She had an epidural catheter placed for analgesia and, during her labor course was started on Procardia XL 30 mg daily. Her blood pressures remained under reasonable control though did require occasional IV labetalol during the labor process. She progressed ultimately to 7 cm at which time she made no further progress but was also having significant pain despite several attempts to bolus the epidural. She ultimately requested to proceed to primary low-transverse section secondary to intolerance of labor. She was taken to the operating room where she was delivered of a viable 4 pound 15 ounce baby boy with Apgars of 8 at 1 minute and 9 at 5 minutes. The patient 1 was on magnesium sulfate during her labor process and remained on magnesium sulfate for 24 hours . Her bl ood pressures remained stable with Procardia XL 30 mg as noted above. After discontinuation of magnesium, the patient felt significantly better and was found to have her blood pressures in the stable range. She initially intended to stay for the entire 4 days as the infant will remain in the hospital likely for at least 5 to 7 days . She has now changed her mind and requested to be discharged home to return to visit the baby on a regular basis. She was therefore deemed stable for discharge on postoperative day #2 and was discharged home to follow-up in the office in 2 weeks for an incision check in 6 weeks routinely. Discharge instructions included calling for any significantly increased bleeding or foul-smelling lochia, significantly increased fever abdominal pain, perineal complaints, breast complaints, incisional complaints, or anything else that concerned her. She was additionally instructed to watch for signs or symptoms of increasing blood pressure again such as headache, scotomata or any other unusual signs. She was instructed to do no heavy lifting over the next 6 weeks time and to do no driving over the next 2 weeks time or until off of pain medications, whichever came first. She understood her instructions and agrees to follow-up as noted above. Discharge medications included continued vitamins as she has opted to attempt to breast-feed. She was otherwise to use [id number] analgesic pain medications. She was provided with a prescription for oxycodone 5 mg, 1-2 p.o. every 6 hours as needed pain, #20 dispensed with no refills. Maternal blood type is A- and cord blood was sent for evaluation for the necessity of RhoGAM prior to discharge. Rubella status is nonimmune and she therefore was to receive the MMR vaccination prior to discharge. Discharge hemoglobin and hematocrit were 10.4 and 32.9 respectively. Procedures: #1. Pitocin induction #2. Artificial rupture of membranes #3. Magnesium sulfate seizure prophylaxis #4. Epidural analgesia #5. Antihypertensive therapy #6. Primary low-transverse section Patient Condition at Discharge: Stable Plan - Discharge Summary New Discharge Prescriptions: No Action Vit No.179/Iron/Folic [ Tablet] 1 tab PO DAILY Omeprazole [PriLOSEC] 10 mg PO DAILY Discharge Medication List Vit No.179/Iron/Folic [ Tablet] 1 tab PO DAILY 03/24/24 [History] Omeprazole [PriLOSEC] 10 mg PO DAILY 07/11/24 [History] Follow up Appointment(s)/Referral(s): Audra Fontana MD [STAFF PHYSICIAN] - 2 Weeks Discharge Disposition: HOME SELF-CARE
[2024-07-14] MEDS: SERTRALINE 50 MG TAB PO SCH (13:10)
[2024-07-14 13:18] VITALS: PULSE 80
[2024-07-14 16:22] VITALS: BP 139/86; TEMP 98.2
[2024-07-14] MEDS: ONDANSETRON 4 MG/2 ML VIAL IVP PRN (16:45)
[2024-07-14] MEDS: SIMETHICONE 80 MG CHEWABLE PO PRN (16:46)
== END 2024-07-14 19:10 | disposition home or self-care (01) | DRG 540 ==
LOC: FBPOP 19:54 → 4FBP 20:21
PROVIDERS: ADMIT Obstetrics & Gynecology; ATTEND Obstetrics & Gynecology
PROC: 3E033VJ Introduction of Other Hormone into Peripheral Vein, Percutaneous Approach (ICD-10-PCS; principal; 2024-07-12 19:30)
PROC: 10D00Z1 Extraction of Products of Conception, Low, Open Approach (ICD-10-PCS; principal; 2024-07-12 19:30)
PROC: 10907ZC Drainage of Amniotic Fluid, Therapeutic from Products of Conception, Via Natural or Artificial Opening (ICD-10-PCS; principal; 2024-07-12 19:30)
DX: O14.14 Severe pre-eclampsia complicating childbirth (principal); O75.0 Maternal distress during labor and delivery; O99.344 Other mental disorders complicating childbirth; O15.1 Eclampsia complicating labor; O36.5930 Maternal care for other known or suspected poor fetal growth, third trimester, not applicable or unspecified; F41.9 Anxiety disorder, unspecified; Z37.0 Single live birth; Z3A.35 35 weeks gestation of pregnancy
CPT/HCPCS: 59025; 81001; 82565; 82570; 83615; 84112; 84156; 84450; 84460; 84520; 84550; 85025; 85384; 85610; 85730; 86850; 86900; 86901; 88307; 96360; 96375; 99215

== ENCOUNTER 2025-05-09 10:44 | Emergency (ER) | payer OTHER ==
[2025-05-09] MEDS: ONDANSETRON 4 MG/2 ML VIAL IVP STA (11:16)
[2025-05-09] MEDS: SODIUM CHLORIDE 0.9% 1,000 ML IV STA (11:21)
[2025-05-09] MEDS: KETOROLAC 15 MG/ML 1 ML VIAL IVP STA (11:22)
[2025-05-09] MEDS: diphenhydrAMINE 50 MG/ML 1 ML VIAL IVP STA (11:24)
[2025-05-09 11:27] LABS: Basophils # (A) 0.02 10*3/uL (0.00-0.10); Basophils % (A) 0.2 %; Eosinophils # (A) 0.00 10*3/uL (0.04-0.35); Eosinophils % (A) 0.0 %; HCT 38.7 % (37.2-46.3); HGB 12.1 g/dL (12.0-15.0); Lymphocytes # (A) 1.52 10*3/uL (0.90-5.00); Lymphocytes % (A) 11.7 %; MCH 24.9 pg (27.0-32.0); MCHC 31.3 g/dL (32.0-37.0); MCV 79.6 fL (80.0-97.0); Monocytes # (A) 0.41 10*3/uL (0.20-1.00); Monocytes % (A) 3.2 %; Neutrophils # (A) 11.00 10*3/uL (1.80-7.70); Neutrophils % (A) 84.4 %; Platelet Count 299 10*3/uL (140-440); RBC 4.86 10*6/uL (4.10-5.20); RDW 17.1 % (11.5-14.5); WBC 13.01 10*3/uL (4.50-10.00)
--- NOTE | 2025-05-09 11:27 | ED ---
General Adult HPI - General Chief complaint: Seizure Stated complaint: Seizure Time Seen by Provider: 05/09/25 10:57 Source: patient, EMS Mode of arrival: EMS - History of Present Illness Initial comments: Dictation was produced using [employer] dictation software. please excuse any gra mmatical, word or spelling errors. Chief Complaint: 25-year-old female presents with seizure History of Present Illness: Patient 25-year-old female no history of seizure. Patient states she woke up this morning with a headache. She does have history of headaches however this headache was more severe than usual. Went to take a nap. She remembers is that she is in the back of EMS vehicle. Patient smokes marijuana daily. She uses cannabis oil delivered as a vapor through a vape pen. Said her headache is improved since woken up. Denies any extremity symptoms. The ROS documented in this emergency department record has been reviewed and confirmed by me. Those systems with pertinent positive or negative responses have been documented in the HPI. All other systems are other negative and/or noncontributory. - Related Data Home Medications Medication Instructions Recorded Confirmed Vit No.179/Iron/Folic 1 tab PO DAILY 03/24/24 07/11/24 [ Tablet] Omeprazole [PriLOSEC] 10 mg PO DAILY 07/11/24 07/11/24 Allergies Allergy/AdvReac Type Severity Reaction Status Date / Time No Known Allergies Allergy Verified 05/09/25 10:50 Review of Systems ROS Statement: Those systems with pertinent positive or pertinent negative responses have been documented in the HPI. ROS Other: All systems not noted in ROS Statement are negative. Past Medical History Past Medical History: No Reported History History of Any Multi-Drug Resistant Organisms: None Reported Past Surgical History: Breast Surgery, Section Additional Past Surgical History / Comment(s): Breast reduction Past Anesthesia/Blood Transfusion Reactions: No Reported Reaction Past Psychological History: No Psychological Hx Reported Smoking Status: Never smoker Past Alcohol Use History: None Reported Past Drug Use History: Marijuana - Past Family History Mother Family Medical History: No Reported History General Exam - General Exam Comments Initial Comments: PHYSICAL EXAM: General Impression: Alert and oriented x3, not in acute distress HEENT: Normocephalic atraumatic, extra-ocular movements intact, pupils equal and reactive to light bilaterally, mucous membranes moist. Cardiovascular: Heart regular rate and rhythm Chest: Able to complete full sentences, no retractions, no tachypnea Abdomen: abdomen soft, non-tender, non-distended, no organomegaly Musculoskeletal: Pulses present and equal in all extremities, no peripheral edema Motor: no focal deficits noted Neurological: CN II-XII grossly intact, no focal motor or sensory deficits noted Skin: Intact with no visualized rashes Psych: Normal affect and mood Course Vital Signs 05/09/25 05/09/25 10:45 12:12 Temperature 98.4 F Pulse Rate 108 H 81 Respiratory 20 18 Rate Blood Pressure 124/75 112/74 O2 Sat by Pulse 99 100 Oximetry EKG Findings - EKG Comments: EKG Findings:: My EKG interpretation: Ventricular rate 86, sinus rhythm, IN 162, QRS 87, QTc 392. No IN prolongation, no QTC prolongation, no ST or T-wave changes noted. Overall, this EKG is unremarkable Medical Decision Making - Medical Decision Making Was pt. sent in by a medical professional or institution (, PA, [employer]REDD[employer] F[employer] MACHINE [employer]AP[employer]ER, urgent care, hospital, or snf...) When possible be specific @ -No Did you speak to anyone other than the patient for history (EMS, parent, family, police, friend...)? What history was obtained from this source @ -See above. More history was obtained from significant other at the bedside stating that she had a generalized tonic-clonic seizure with postictal state. Did you review nursing and triage notes (agree or disagree)? Why? @ -I reviewed and agree with nursing and triage notes Were old charts reviewed (outside hosp., previous admission, EMS record, old EKG, old radiological studies, urgent care reports/EKG's, snf records)? Report findings @ -No old charts were reviewed Differential Diagnosis (chest pain, altered mental status, abdominal pain women, abdominal pain men, vaginal bleeding, musculoskeletal, weakness, fever, dyspnea, syncope, headache, dizziness, GI bleed, back pain, seizure, CVA, pa lpatations, mental health)? @ -Differential Seizure: Recurrent seizure disorder, febrile seizure, alcohol withdrawal, stimulants, meningitis, encephalitis, intercranial hemorrhage, intracranial tumor, stroke, eclampsia, thyrotoxicosis, hypocalcemia, hyponatremia, hypernatremia, hypomagnesemia, psychogenic, this is not meant to be an all-inclusive list. EKG interpreted by me (3pts min.). @ -See above X-rays interpreted by me (1pt min.). @ -None done CT interpreted by me (1pt min.). @ -CT head and C-spine shows no acute processes U/S interpreted by me (1pt. min.). @ -None done What testing was considered but not performed or refused? (CT, X-rays, U/S, labs)? Why? @ -None What meds were considered but not given or refused? Why? @ -None Was smoking cessation discussed for >3mins.? @ -No Were there social determinants of health that impacted care today? How? (Homelessness, low income, unemployed, alcoholism, drug addiction, transportation, low edu. Level, literacy, decrease access to med. care, prison, rehab)? @ -No Was there de-escalation of care discussed even if they declined (Discuss DNR or withdrawal of care, Hospice)? DNR status @ -No What co-morbidities impacted this encounter? (DM, HTN, Smoking, COPD, CAD, Cancer, CVA, ARF, Chemo, Hep., AIDS, mental health diagnosis, sleep apnea, morbid obesity)? @ -None Was patient admitted / discharged? Hospital course, mention meds given and route, prescriptions, significant lab abnormalities, going to OR and other pertinent info. @ -65-year-old female with daily marijuana use who presents with new onset seizure. Vital signs stable. Patient does complain of a mild headache. CT brain is negative. Patient given headache cocktail with resolution of her symptoms. Labs support diagnosis of seizure with some acidosis. Otherwise no other acute findings. Disposition options were discussed. Offered hospital observation admission for neurology consultation however she preferred to just follow-up outpatient. Patient told to discontinue use of marijuana and marijuana containing substances. Patient told to follow-up with her primary care doctor for outpatient referral for neurology. Did you discuss the management of the patient with other professionals (professionals i.e. , PA, [employer], lab, RT, psych nurse, social and human services assistant, market research analyst, teacher, corporate trust officer, ed case manager)? Give summary @ -Case discussed with neurologist did not recommend starting any antiseizure medications at this time Was critical care preformed (if so, how long)? @ -No Undiagnosed new problem with uncertain prognosis? @ -No Drug Therapy requiring intensive monitoring for toxicity (Heparin, Nitro, Insulin, Cardizem)? @ -No Were any procedures done? @ -No Diagnosis/symptom? Acute, or Chronic, or Acute on Chronic? Uncomplicated (wit hout systemic symptoms) or Complicated (systemic symptoms)? @ -No onset seizure Side effects of treatment? @ -No Exacerbation, Progression, or Severe Exacerbation? @ -No Poses a threat to life or bodily function? How? (Chest pain, USA, MD, pneumonia, PE, COPD, DKA, ARF, appy, cholecystitis, CVA, Diverticulitis, Homicidal, Suicidal, threat to staff... and all critical care pts) @ -yes - Lab Data Result diagrams: 05/09/25 11:19 05/09/25 11:19 Lab Results 05/09/25 05/09/25 Range/Units 11:19 11:19 WBC 13.01 H (4.50-10.00) 10*3/uL RBC 4.86 (4.10-5.20) 10*6/uL Hgb 12.1 (12.0-15.0) g/dL Hct 38.7 (37.2-46.3) % MCV 79.6 L (80.0-97.0) fL MCH 24.9 L (27.0-32.0) pg MCHC 31.3 L (32.0-37.0) g/dL Plt Count 299 (140-440) 10*3/uL MPV 11.0 (9.5-12.2) fL Immature Gran % (Auto) 0.5 % Neutrophils % 84.4 % Lymphocytes % 11.7 % Monocytes % 3.2 % Eosinophils % 0.0 % Basophils % 0.2 % Immature Gran # 0.06 H (0.00-0.04) 10*3/uL Neutrophils # 11.00 H (1.80-7.70) 10*3/uL Lymphocytes # 1.52 (0.90-5.00) 10*3/uL Monocytes # 0.41 (0.20-1.00) 10*3/uL Eosinophils # 0.00 L (0.04-0.35) 10*3/uL Basophils # 0.02 (0.00-0.10) 10*3/uL Sodium 140 (137-145) mmol/L Potassium 4.3 (3.5-5.1) mmol/L Chloride 111 H (98-107) mmol/L Carbon Dioxide 10 L (22-30) mmol/L Anion Gap 19 mmol/L BUN 8 (7-17) mg/dL Creatinine 0.59 (0.52-1.04) mg/dL Est GFR (CKD-EPI)AfAm >90 (>60 ml/min/1.73 sqM) Est GFR (CKD-EPI)NonAf >90 (>60 ml/min/1.73 sqM) Glucose 161 H (74-99) mg/dL Calcium 9.1 (8.4-10.2) mg/dL Magnesium 2.2 (1.6-2.3) mg/dL Total Bilirubin 0.3 (0.2-1.3) mg/dL AST 29 (14-36) U/L ALT 23 (4-34) U/L Alkaline Phosphatase 99 (38-126) U/L Total Protein 7.4 (6.3-8.2) g/dL Albumin 4.5 (3.5-5.0) g/dL HCG, Quant <2.4 mIU/mL Disposition Clinical Impression: New onset seizure Disposition: HOME SELF-CARE Instructions (If sedation given, give patient instructions): Seizure/Epilepsy Discharge Instructions & Follow-Up, New-Onset Seizure in Adults (ED) Additional Instructions: no driving or operating heavy machinery until cleared by biomedical field service engineer. You will need outpatient follow-up with neurologist. Is patient prescribed a controlled substance at d/c from ED?: No Referrals: None,Stated [Primary Care Provider] - 1-2 days Time of Disposition: 13:36
[2025-05-09 11:45] LABS: ALT 23 U/L (4-34); AST 29 U/L (14-36); African American GFR (CKD) >90 (>60 ml/min/1.73 sqM); Albumin 4.5 g/dL (3.5-5.0); Alkaline Phosphatase 99 U/L (38-126); Anion Gap 19 mmol/L; Blood Urea Nitrogen 8 mg/dL (7-17); Calcium 9.1 mg/dL (8.4-10.2); Carbon Dioxide 10 mmol/L (22-30); Chloride 111 mmol/L (98-107); Glucose 161 mg/dL (74-99); Magnesium 2.2 mg/dL (1.6-2.3); Non-African American GFR(CKD) >90 (>60 ml/min/1.73 sqM); Potassium 4.3 mmol/L (3.5-5.1); Sodium 140 mmol/L (137-145); Total Protein 7.4 g/dL (6.3-8.2)
[2025-05-09 12:00] LABS: HCG,Quantitative Serum <2.4 mIU/mL
[2025-05-09 12:14] VITALS: RESP 18
--- NOTE | 2025-05-09 13:06 | CT ---
EXAMINATION TYPE: CT brain wo con DATE OF EXAM: 05/09/2025 12:55 PM COMPARISON: None. CLINICAL INDICATION: Female, 25 years old with history of seizure activity, confusion TECHNIQUE: Examination was done in axial plane without intravenous contrast. Coronal and sagittal r econstructions performed. CT DLP: 1097.4 mGycm, Automated exposure control for dose reduction was used. FINDINGS: There is no evidence of acute intracranial hemorrhage, acute ischemic changes, mass, mass-effect, or extra-axial fluid collection. There is no effacement of cerebral sulci or basal subarachnoid cister ns. There is no hydrocephalus. There is no midline shift. Vazquez-white matter distinction is preserv ed. Paranasal sinuses and mastoid air cells are pneumatized. Orbits and globes are intact. IMPRESSION: No acute intracranial abnormality seen. [facility], , 05/09/2025 1:03 PM
[2025-05-09 14:37] VITALS: BP 117/75; PULSE 76; TEMP 98.8
== END 2025-05-09 14:37 | disposition home or self-care (01) ==
LOC: EC 10:44
DX: R56.9 Unspecified convulsions (principal)
CPT/HCPCS: 36415; 93005; 80053; 83735; 85025; 84702; 70450; 99285; 96374; 96375; 96361; J1200; J1885

== ENCOUNTER → 2025-05-17 | Outpatient (CLI) | payer OTHER ==
--- NOTE | 2025-05-17 10:58 | XR ---
EXAMINATION TYPE: XR KUB DATE OF EXAM: 05/17/2025 10:40 AM COMPARISON: None. CLINICAL INDICATION: Female, 25 years old with history of R10.84 KUB, TECHNIQUE: Single view of the abdomen. FINDINGS: Small bowel demonstrates no evidence for dilatation or air fluid levels. Gas and fecal material is seen in non-distended colon. No convincing evidence for pneumoperitoneum. No unusual calcifications. The lung bases are clear. The osseous structures are intact. IMPRESSION: 1. Overall nonobstructive bowel gas pattern. [facility], , 05/17/2025 10:56 AM
--- NOTE | 2025-05-17 11:03 | XR ---
EXAMINATION TYPE: XR soft tissue neck DATE OF EXAM: 05/17/2025 10:40 AM COMPARISON: None. CLINICAL INDICATION: Female, 25 years old with history of M43.6 LR NECK STIFFNESS TECHNIQUE: XR soft tissue neck views were obtained FINDINGS: The airway is patent. Normal appearing epiglottis. Retropharyngeal soft tissues are within normal l imits. No evidence for radiopaque foreign body. IMPRESSION: Negative study [facility], , 05/17/2025 11:01 AM
== END | disposition home or self-care (01) ==
LOC: RADXRMAIN 10:26
PROVIDERS: ATTEND Family Medicine
DX: R10.84 Generalized abdominal pain (principal); M43.6 Torticollis
CPT/HCPCS: 70360; 74018